=== PATIENT | female | born 1980 | race Caucasian/White ===

== ENCOUNTER → 2025-04-18 | Outpatient (CLI) | payer BC, SELFPAY | END | disposition home or self-care (01) | LOC: SWHD 07:58 | PROVIDERS: PCP Nurse Practitioner Family; Referring Provider Nurse Practitioner Family; Visit Provider Student in an Organized Health Care Education/Training Program | DX: I96 Gangrene, not elsewhere classified (principal); L97.329 Non-pressure chronic ulcer of left ankle with unspecified severity; L98.499 Non-pressure chronic ulcer of skin of other sites with unspecified severity; K50.918 Crohn's disease, unspecified, with other complication; Z96.652 Presence of left artificial knee joint; Z98.890 Other specified postprocedural states | CPT/HCPCS: 97597; 99213; A9270; G0463 ==

== ENCOUNTER → 2025-05-02 | Outpatient (CLI) | payer BC, SELFPAY | END | disposition home or self-care (01) | LOC: SWHD 07:51 | PROVIDERS: PCP Registered Nurse; Referring Provider Registered Nurse; Visit Provider Student in an Organized Health Care Education/Training Program | DX: I96 Gangrene, not elsewhere classified (principal); L97.329 Non-pressure chronic ulcer of left ankle with unspecified severity; L98.499 Non-pressure chronic ulcer of skin of other sites with unspecified severity; K50.918 Crohn's disease, unspecified, with other complication; Z96.652 Presence of left artificial knee joint; Z98.890 Other specified postprocedural states | CPT/HCPCS: 99213; A9270; G0463 ==

== ENCOUNTER → 2025-06-05 | Outpatient (CLI) | payer BC, SELFPAY | END | disposition home or self-care (01) | LOC: SWHD 14:42 | PROVIDERS: PCP Registered Nurse; Referring Provider Registered Nurse; Visit Provider Student in an Organized Health Care Education/Training Program | DX: I96 Gangrene, not elsewhere classified (principal); L97.321 Non-pressure chronic ulcer of left ankle limited to breakdown of skin; K50.918 Crohn's disease, unspecified, with other complication; Z96.652 Presence of left artificial knee joint; Z98.890 Other specified postprocedural states | CPT/HCPCS: 99212; A9270; G0463 ==